=== PATIENT | male | born 2000 | race Caucasian/White ===

== ENCOUNTER 2019-01-25 10:25 | Emergency (ER) | payer BC ==
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
[2019-01-25] MEDS ORDERED: CLINDAMYCIN 900MG/D5W 900 MG/50 ML IVPB IV ONE (13:40)
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
== END 2019-01-25 16:25 | disposition short-term general hospital (02) ==
LOC: ER 10:25
DX: S02.652B Fracture of angle of left mandible, initial encounter for open fracture (principal); V86.59XA Driver of other special all-terrain or other off-road motor vehicle injured in nontraffic accident, initial encounter
CPT/HCPCS: 36415; 70450; 70486; 70491; 76377; 96374; 99284; Q9967

== ENCOUNTER → 2023-10-19 | Emergency (ER) | payer SELFPAY ==
[~2023-10-19] MED LIST: DIPHENHYDRAMINE 50 MG/ML VIAL ONE; KETOROLAC 30 MG/ML INJ ONE; METOCLOPRAMIDE 10 MG/2mL INJ ONE; NA CHLORIDE 0.9% 1,000 ML ONE; ONDANSETRON 4 MG (ODT) TAB ONE; dexAMETHasone 10 MG/ML VIAL ONE
--- OUTSIDE RECORDS SUMMARY | 2023-10-19 15:35 | XMS REPORT | Continuity of Care Document ---
Author Name Unknown Address [address] [place] [address] [employer] Address [address] [place] [address] Care Team Providers Care De Icer Installer Name Role Phone Unavailable Unavailable Unavailable
--- NOTE | 2023-10-19 18:03 | ER ---
Nurse's Notes [facility] Name: Zak Shaffer Age: 23 yrs Sex: Male : 2000 Arrival Date: 10/19/2023 Time: 15:32 Bed 20 Private MD: Diagnosis: Influenza due to other identified influenza virus with other respiratory manifestations;Headache Presentation: 10/19 16:36 Coronavirus screen: fever, headache. Ebola Screen: Patient denies travel to an [facility] Ebola-affected area in the 21 days before illness onset. Initial Sepsis Screen: Does the patient meet any 2 criteria? No. Patient's initial sepsis screen is negative. Does the patient have a suspected source of infection? No. Patient's initial sepsis screen is negative. Risk Assessment: Do you want to hurt yourself or someone else? Patient reports no desire to harm self or others. Onset of symptoms was October 2023. 16:36 Acuity: YANELIS 4 aa 16:36 Method Of Arrival: Ambulatory [facility] 16:36 Chief complaint: Patient states: fever, vomiting, diarrhea, body aches since yesterday. aa5 Triage Assessment: 20:00 Headache History: Denies prior headaches. General: Appears. General: Appears me1 uncomfortable, well groomed, well developed, well nourished, Behavior is calm, cooperative, appropriate for age. Pain: Complains of pain in head Pain does not radiate. Pain currently is 7 out of 10 on a pain scale. Quality of pain is described as aching, Pain began 2-3 days ago. Is continuous, Also complains of nausea. Neuro: Level of Consciousness is awake, alert, obeys commands, Oriented to person, place, time, situation, Appropriate for age. Cardiovascular: Capillary refill < 3 seconds Patient's skin is warm and dry. Respiratory: Airway is patent Respiratory effort is even, unlabored, Respiratory pattern is regular, symmetrical. GI: Reports nausea. Historical: - Allergies: 16:36 No Known Allergies; aa5 - PMHx: 16:36 None; aa5 - Immunization history:: Adult Immunizations unknown. - Social history:: Smoking status: Patient reports the use of cigarette tobacco products, denies chronic smoking, but will smoke occasionally. Screenin:58 [facility] ED Fall Risk Assessment (Adult) History of falling in the last 3 months, me1 including since admission No falls in past 3 months (0 pts) Confusion or Disorientation No (0 pts) Intoxicated or Sedated No (0 pts) Impaired Gait No (0 pts) Mobility Assist Device Used No (0 pt) Altered Elimination No (0 pt) Score/Fall Risk Level 0 - 2 = Low Risk Provided non-skid footwear, Hourly rounding (assess needs \\T\\ fall precautionary measures) done. Abuse screen: Denies threats or abuse. Nutritional screening: No deficits noted. Tuberculosis screening: No symptoms or risk factors identified. Assessment: 18:15 Reassessment: Attempted to discharge pt from triage, positive for Flu B, pt states "I'm aa5 not even getting an IV or something stronger that the ibuprofen I have at home", told pt that I will talk to provider and ask if he can have IV fluid for hydration, pt agrees. Provider agreed and pt was placed in ER bed 20. . Vital Signs: 16:36 BP 133 / 80; Pulse 82; Resp 16 S; Temp 99(TE); Pulse Ox 100% on R/A; Weight 79.38 kg aa5 (R); Height 5 ft. 8 in. (R); 18:22 BP 128 / 79; Pulse 79; Resp 18; Pulse Ox 99% on R/A; me1 19:24 BP 117 / 74; Pulse 83; Resp 18; Pulse Ox 97% on R/A; me1 19:24 BP 139 / 78; Pulse 95; Resp 18; Pulse Ox 100% on R/A; me1 16:36 Body Mass Index 26.61 (79.38 kg, 172.72 cm) aa5 ED Course: 15:35 Patient arrived in ED. mr 15:47 Brain Holbrook PA is PHCP. cp 15:47 Ambrose Hyman MD is Attending Physician. cp 16:36 Arm band placed on. aa5 16:37 Triage completed. aa5 18:19 Josey Villalobos, BOO is Primary Nurse. me1 18:29 Inserted saline lock: 22 gauge in right antecubital area, using aseptic technique. me1 18:30 CMP Sent. me1 18:30 CBC with Diff Sent. me1 19:58 Patient has correct armband on for positive identification. Bed in low position. Call me1 light in reach. Side rails up X2. Provided Education on: POC. Verbalized understanding. . 19:58 No provider procedures requiring assistance completed. me1 20:07 IV discontinued, intact, bleeding controlled, No redness/swelling at site. Pressure me1 dressing applied. Administered Medications: 16:43 Drug: Ondansetron PO 4 mg PO once Route: PO; aa5 18:19 Follow up: Response: No adverse reaction me1 18:40 Drug: NS 0.9% IV 1000 ml IV at 1 bolus Per protocol; 1000 mL bolus Route: IV; Rate: 1 me1 bolus; Site: right antecubital; 19:30 Follow up: IV Status: Completed infusion me1 18:41 Drug: metoCLOPramide IVP 10 mg IVP once; over 1 to 2 minutes Route: IVP; Site: right me1 antecubital; 20:10 Follow up: Response: No adverse reaction me1 18:41 Drug: diphenhydrAMINE IVP 25 mg IVP once Route: IVP; Site: right antecubital; me1 20:09 Follow up: Response: No adverse reaction me1 18:41 Drug: Ketorolac IVP 15 mg IVP once Route: IVP; Site: right antecubital; me1 20:09 Follow up: Response: No adverse reaction me1 18:41 Drug: Decadron - Dexamethasone IVP 10 mg IVP once Route: IVP; Site: right antecubital; me1 20:09 Follow up: Response: No adverse reaction me1 20:09 Follow up: Response: No adverse reaction me1 Medication: 20:01 VIS not applicable for this client. me1 Outcome: 18:02 Discharge ordered by MD. cp 19:44 Discharge ordered by MD. cp 20:01 Discharged to home ambulatory, with significant other, me1 20:01 Condition: stable 20:01 Discharge instructions given to patient, significant other, Instructed on discharge instructions, follow up and referral plans. medication usage, Demonstrated understanding of instructions, follow-up care, medications, Prescriptions given X 3, 20:08 Patient left the ED. me1 Signatures: Yin Vargas, Rich Villanueva mr AminAmelia, RN RN aa5 Brain Holbrook PA PA Josey Jenkins RN RN me1
--- NOTE | 2023-10-19 18:03 | EDPHYS ---
Physician Documentation [facility] Name: Zak Shaffer Age: 23 yrs Sex: Male : 2000 Arrival Date: 10/19/2023 Time: 15:32 Bed 20 Private MD: ED Physician Ambrose Hyman HPI: 10/19 16:35 This 23 yrs old Male presents to ER via Ambulatory with complaints of Fever, Headache, cp Vomiting. 16:35 The patient reports fever, not measured (subjective). Onset: The symptoms/episode cp began/occurred yesterday. 16:35 Associated signs and symptoms: Pertinent positives: diarrhea, headache, vomiting, body cp aches. Severity of symptoms: in the emergency department the symptoms are unchanged despite home interventions. Historical: - Allergies: 16:36 No Known Allergies; aa5 - PMHx: 16:36 None; aa5 - Immunization history:: Adult Immunizations unknown. - Social history:: Smoking status: Patient reports the use of cigarette tobacco products, denies chronic smoking, but will smoke occasionally. ROS: 16:40 Constitutional: Positive for body aches, fever, Negative for poor PO intake, cp 16:40 Eyes: Negative for injury, pain, redness, and discharge, cp 16:40 ENT: Negative for drainage from ear(s), ear pain, sore throat, difficulty swallowing, difficulty handling secretions, 16:40 Cardiovascular: Negative for chest pain, palpitations, 16:40 Respiratory: Negative for cough, shortness of breath, wheezing, 16:40 Abdomen/GI: Positive for vomiting, diarrhea, Negative for abdominal pain, 16:40 Neuro: Positive for headache, Negative for altered mental status, 16:40 All other systems are negative, Exam: 16:45 Constitutional: The patient appears in no acute distress, alert, awake, non-toxic, well cp developed, well nourished, uncomfortable, 16:45 Head/Face: Normocephalic, atraumatic. cp 16:45 Eyes: Periorbital structures: appear normal, Conjunctiva: normal, no exudate, no injection, Sclera: no appreciated abnormality, Lids and lashes: appear normal, bilaterally, 16:45 ENT: External ear(s): are unremarkable, Ear canal(s): are normal, clear, TM's: dullness, bilaterally, Nose: is normal, Mouth: Lips: moist, Oral mucosa: pink and intact, moist, Posterior pharynx: Airway: no evidence of obstruction, patent, Tonsils: no enlargement, no exudate, erythema, is not appreciated, exudate, is not appreciated, 16:45 Neck: ROM/movement: is normal, is supple, no meningismus, no nuchal rigidity, Lymph nodes: no appreciated lymphadenopathy, 16:45 Chest/axilla: Inspection: normal, 16:45 Cardiovascular: Rate: normal, Rhythm: regular, 16:45 Respiratory: the patient does not display signs of respiratory distress, Respirations: normal, no use of accessory muscles, no retractions, labored breathing, is not present, Breath sounds: are clear throughout, no decreased breath sounds, no stridor, no wheezing, 16:45 Abdomen/GI: Inspection: abdomen appears normal, Palpation: abdomen is soft and non-tender, in all quadrants, 16:45 Back: pain, is absent, ROM is normal, 16:45 Neuro: Orientation: to person, place \T\ time. Mentation: is normal, Cerebellar function: is grossly normal, Motor: moves all fours, strength is normal, Sensation: is normal, Gait: is steady, at a normal pace, without difficulty, Vital Signs: 16:36 BP 133 / 80; Pulse 82; Resp 16 S; Temp 99(TE); Pulse Ox 100% on R/A; Weight 79.38 kg aa5 (R); Height 5 ft. 8 in. (R); 18:22 BP 128 / 79; Pulse 79; Resp 18; Pulse Ox 99% on R/A; me1 19:24 BP 117 / 74; Pulse 83; Resp 18; Pulse Ox 97% on R/A; me1 19:24 BP 139 / 78; Pulse 95; Resp 18; Pulse Ox 100% on R/A; me1 16:36 Body Mass Index 26.61 (79.38 kg, 172.72 cm) aa5 MDM: 16:34 Patient medically screened. cp 19:44 Data reviewed: vital signs, nurses notes, lab test result(s), and as a result, I will cp discharge patient. 19:44 Differential diagnosis: viral Infection, bacterial infection, gastroenteritis, cp meningitis, sepsis. I considered the following discharge prescriptions or medication management in the emergency department Medications were administered in the Emergency Department. See MAR. Counseling: I had a detailed discussion with the patient and/or guardian regarding the historical points, exam findings, and any diagnostic results supporting the discharge/admit diagnosis, lab results, to return to the emergency department if symptoms worsen or persist or if there are any questions or concerns that arise at home. Response to treatment: the patient's symptoms have markedly improved after treatment, and as a result, I will discharge patient. 10/19 16:31 Order name: COVID-19 SARS RT PCR; Complete Time: 17:52 cp 10/19 16:31 Order name: Influenza Screen (a \T\ B); Complete Time: 17:52 cp 10/19 17:52 Interpretation: Reviewed. cp 10/19 16:31 Order name: Strep cp 10/19 17:13 Order name: Throat Culture EDMS 10/19 18:16 Order name: CBC with Diff; Complete Time: 19:37 cp 10/19 18:16 Order name: CMP; Complete Time: 19:37 cp 10/19 18:16 Order name: IV; Complete Time: 18:30 cp Administered Medications: 16:43 Drug: Ondansetron PO 4 mg PO once Route: PO; aa5 18:19 Follow up: Response: No adverse reaction me1 18:40 Drug: NS 0.9% IV 1000 ml IV at 1 bolus Per protocol; 1000 mL bolus Route: IV; Rate: 1 me1 bolus; Site: right antecubital; 19:30 Follow up: IV Status: Completed infusion me1 18:41 Drug: metoCLOPramide IVP 10 mg IVP once; over 1 to 2 minutes Route: IVP; Site: right me1 antecubital; 20:10 Follow up: Response: No adverse reaction me1 18:41 Drug: diphenhydrAMINE IVP 25 mg IVP once Route: IVP; Site: right antecubital; me1 20:09 Follow up: Response: No adverse reaction me1 18:41 Drug: Ketorolac IVP 15 mg IVP once Route: IVP; Site: right antecubital; me1 20:09 Follow up: Response: No adverse reaction me1 18:41 Drug: Decadron - Dexamethasone IVP 10 mg IVP once Route: IVP; Site: right antecubital; me1 20:09 Follow up: Response: No adverse reaction me1 20:09 Follow up: Response: No adverse reaction me1 Disposition Summary: 10/19/23 19:44 Discharge Ordered Notes: Location: Home(10/19/23 19:44) cp Problem: new(10/19/23 19:44) cp Symptoms: have improved(10/19/23 19:44) cp Condition: Stable(10/19/23 19:44) cp Diagnosis - Influenza due to other identified influenza virus with other respiratory cp manifestations(10/19/23 19:44) - Headache cp Followup: cp - With: Private Physician - When: 2 - 3 days - Reason: Worsening of condition Discharge Instructions: - Discharge Summary Sheet cp - Influenza, Adult cp Forms: - Medication Reconciliation Form cp - Thank You Letter cp - Antibiotic Education cp - Prescription Opioid Use cp - Patient Portal Instructions cp - Leadership Thank You Letter cp Addendum: 10/22/2023 20:29 I was immediately available for consultation during this patient's visit. I did not e c2 personally see the patient or discuss the patient with the JOEL. . Signatures: Dispatcher [employer] Amelia Ochoa, RN RN aa5 Brain Holbrook PA PA cp Josey Villalobos RN RN me1 Ambrose Hyman MD MD ec2 Corrections: (The following items were deleted from the chart) 10/19 18:14 18:02 Home cp cp 18:14 18:02 new cp cp 18:14 18:02 have improved cp cp 18:14 18:02 Stable cp cp 18:14 18:02 Influenza due to other identified influenza virus with other respiratory cp manifestations cp
[2023-10-19 18:40] LABS: Absolute Lymphocytes (CBC) 0.4 K/uL (0.7-4.9); Hematocrit 42.5 % (39.6-49.0); Lymphocytes % 10.6 % (15.3-44.8); MCV 86.9 fL (80-100); MPV 8.7 fL (7.6-11.3); Platelets 189 thou/uL (152-406); RBC Red Blood Cell Count 4.89 M/uL (4.33-5.43)
[2023-10-19 18:51] LABS: Bilirubin Total 0.3 mg/dL (0.2-1.0); Potassium 3.7 mEq/L (3.5-5.1); Protein, Total 7.3 g/dL (6.4-8.2)
[2023-10-19 23:20] VITALS: TEMP 99; O2SAT 100
[2023-10-19 23:33] VITALS: BP 139/78
== END ==
LOC: ER 15:32
DX: J10.1 Influenza due to other identified influenza virus with other respiratory manifestations (principal); Z11.52 Encounter for screening for COVID-19; F17.210 Nicotine dependence, cigarettes, uncomplicated
CPT/HCPCS: 36415; 80053; 85025; 87070; 87081; 87635; 87804; 96361; 96374; 96375; 99284; J1100; J1200; J2765; J7030; Q0162